=== PATIENT | male | born 1990 | race Caucasian/White ===

== ENCOUNTER 2018-04-13 14:05 | Emergency (ER) | payer SELFPAY ==
[2018-04-13] MEDS ORDERED: ONDANSETRON HCL 4 MG/2 ML SOL IV ONE ×2 (14:08→15:13)
[2018-04-13] MEDS ORDERED: SODIUM CHLORIDE 0.9% 1000ML 1,000 ML IV ONE (14:08)
[2018-04-13] MEDS ORDERED: ONDANSETRON HCL 4 MG/2 ML SOL ONE ×2 (14:24→15:14)
[2018-04-13 14:26] LABS: BASOPHILS % (AUTO) 1 % (0-3); EOSINOPHILS % (AUTO) 0 % (0-9); HEMATOCRIT 44 % (39-53); HEMOGLOBIN 15.7 gm/dl (13.5-17.7); LYMPHOCYTES % (AUTO) 6.99 % (10-50); MEAN CORPUSCULAR HEMOGLOBIN 30.4 pg (27.0-32.0); MEAN CORPUSCULAR HGB CONC 35.5 gm/dl (32.0-36.0); MEAN CORPUSCULAR VOLUME 86 fL (80-100); MONOCYTES % (AUTO) 5.1 % (0-12); NEUTROPHILS % (AUTO) 86.5 % (37-80)
[2018-04-13 14:41] VITALS: RESP 18
[2018-04-13 14:48] LABS: ALBUMIN 4.4 gm/dl (3.4-5.0); CALCIUM 9.3 mg/dl (8.5-10.1); CARBON DIOXIDE 18.5 mEq/L (21-32); CREATININE 1.27 mg/dl (0.80-1.30); TOTAL PROTEIN 8.1 gm/dl (6.4-8.2)
[2018-04-13 14:50] LABS: ALCOHOL 0.019 gm/dl (0.000-0.08)
[2018-04-13] MEDS ORDERED: SODIUM CHLORIDE 0.9% FLUSH 10 ML SOL IV PRN (14:55)
[2018-04-13] MEDS: SODIUM CHLORIDE 0.9% 1000ML 1,000 ML IV SCH ×2 (15:35→16:36)
[2018-04-13] MEDS ORDERED: THIAMINE 100 MG/ML 100 MG/ML SOL IV ONE (16:39)
[2018-04-13] MEDS ORDERED: FOLIC ACID 1 MG TAB PO ONE (16:40)
[2018-04-13] MEDS ORDERED: THIAMINE 100 MG/ML 100 MG/ML SOL ONE (16:42)
[2018-04-13] MEDS ORDERED: FOLIC ACID 1 MG TAB ONE (16:42)
[2018-04-13 16:50] LABS: APPEARANCE,URINE Clear; BILIRUBIN,URINE NEGATIVE (NEGATIVE); COLOR,URINE Yellow; GLUCOSE, URINE (UA) NEGATIVE (NEGATIVE); KETONES,URINE 2+ (NEGATIVE); LEUKOCYTE ESTERASE ,URINE NEGATIVE (NEGATIVE); NITRATE,URINE NEGATIVE (NEGATIVE); OCCULT BLOOD,URINE 2+ (NEG-TRACE); PH,URINE 5.5; UROBILINOGEN,URINE 0.2 (0.2-1.0 EU)
[2018-04-13 17:15] LABS: EPITHELIAL CELLS NEGATIVE (SQUAMOUS); RBC,URINE 0-1 (0-3AV/HPF); WBC,URINE 0-1 (0-5AV/HPF)
[2018-04-13 17:16] LABS: BACTERIA NEGATIVE (< 1+); CRYSTALS NEGATIVE (0-3 AVE/HPF)
[2018-04-13 18:27] VITALS: BP 134/75; PULSE 103; TEMP 101; O2SAT 98
== END 2018-04-13 18:25 | disposition home or self-care (01) | DRG 641 ==
LOC: ED 14:05
DX: E86.0 Dehydration (principal); R11.2 Nausea with vomiting, unspecified; Z72.0 Tobacco use
CPT/HCPCS: 80053; 80307; 81001; 82150; 85025; 96365; 96366; 96374; 96375; 99282; 99285; J2405; A9270-GY; J3411

== ENCOUNTER 2018-08-26 08:57 | Emergency (ER) | payer SELFPAY ==
[2018-08-26] MEDS ORDERED: ONDANSETRON HCL 4 MG/2 ML SOL ONE (09:12)
[2018-08-26] MEDS ORDERED: THIAMINE 100 MG/ML 100 MG/ML SOL IV ONE (09:14)
[2018-08-26] MEDS ORDERED: ONDANSETRON HCL 4 MG/2 ML SOL IV ONE (09:15)
[2018-08-26] MEDS ORDERED: SODIUM CHLORIDE 0.9% 1000ML 1,000 ML IV ONE (09:16)
[2018-08-26 09:18] LABS: BASOPHILS % (AUTO) 0 % (0-3); EOSINOPHILS % (AUTO) 0 % (0-9); HEMATOCRIT 49 % (39-53); HEMOGLOBIN 16.1 gm/dl (13.5-17.7); LYMPHOCYTES % (AUTO) 7.7 % (10-50); MEAN CORPUSCULAR HEMOGLOBIN 28.8 pg (27.0-32.0); MEAN CORPUSCULAR HGB CONC 32.8 gm/dl (32.0-36.0); MEAN CORPUSCULAR VOLUME 88 fL (80-100); MONOCYTES % (AUTO) 5.3 % (0-12); NEUTROPHILS % (AUTO) 86.7 % (37-80)
[2018-08-26] MEDS ORDERED: SODIUM CHLORIDE 0.9% FLUSH 10 ML SOL IV PRN (09:30)
[2018-08-26 09:31] LABS: ALBUMIN 4.7 gm/dl (3.4-5.0); ALCOHOL 0.045 gm/dl (0.000-0.08); BILIRUBIN,TOTAL 0.8 mg/dl (0.2-1.0); CALCIUM 9.2 mg/dl (8.5-10.1); CARBON DIOXIDE 16.4 mEq/L (21-32); CREATININE 1.22 mg/dl (0.80-1.30); MAGNESIUM 1.7 mg/dl (1.8-2.4); POTASSIUM 3.9 mMol/L (3.5-5.1); TOTAL PROTEIN 8.4 gm/dl (6.4-8.2)
[2018-08-26 09:39] VITALS: RESP 18
[2018-08-26] MEDS ORDERED: HYDROMORPHONE HCL 2 MG/ML SOL IV ONE (09:51)
[2018-08-26] MEDS ORDERED: PANTOPRAZOLE SODIUM 40 MG/10 ML PDS IV ONE (09:52)
[2018-08-26] MEDS ORDERED: HYDROMORPHONE 1 MG/ML SYRINGE ONE (09:54)
[2018-08-26] MEDS ORDERED: PANTOPRAZOLE SODIUM 40 MG/10 ML PDS ONE (09:54)
[2018-08-26 10:26] VITALS: TEMP 99
[2018-08-26 11:04] LABS: AMPHETAMINES NEGATIVE (NEGATIVE); BARBITUATES NEGATIVE (NEGATIVE); BENZODIAZEPINES NEGATIVE (NEGATIVE); CANNABINOL(THC) POSITIVE (NEGATIVE); COCAINE(COC) NEGATIVE (NEGATIVE); METHADONE NEGATIVE (NEGATIVE); METHAMPHETAMINES NEGATIVE (NEGATIVE); OPIATES(OPI) NEGATIVE (NEGATIVE); OXYCODONE(OXY) NEGATIVE (NEGATIVE); PROPOXYPHENE(PPX) NEGATIVE (NEGATIVE); TRICYCLIC ANTIDEPRESSANTS NEGATIVE (NEGATIVE)
[2018-08-26 11:28] VITALS: BP 136/72; PULSE 100; O2SAT 99
== END 2018-08-26 11:28 | disposition home or self-care (01) | DRG 392 ==
LOC: ED 08:57
DX: K29.20 Alcoholic gastritis without bleeding (principal)
CPT/HCPCS: 74177; 80053; 80305; 80307; 83735; 85025; 96365; 96366; 96374; 96375; 99283; 99285; J2405; Q9967; J1170; J3411

== ENCOUNTER 2018-11-02 09:47 | Inpatient (IN) | payer MEDICAID ==
[2018-11-02] MEDS ORDERED: ONDANSETRON HCL 4 MG/2 ML SOL IV ONE (10:01)
[2018-11-02] MEDS ORDERED: SODIUM CHLORIDE 0.9% 1000ML 1,000 ML IV ONE ×2 (10:01→15:06)
[2018-11-02] MEDS ORDERED: ONDANSETRON HCL 4 MG/2 ML SOL ONE (10:03)
[2018-11-02 10:17] LABS: HEMATOCRIT 47 % (39-53); HEMOGLOBIN 15.6 gm/dl (13.5-17.7); MEAN CORPUSCULAR HEMOGLOBIN 29.3 pg (27.0-32.0); MEAN CORPUSCULAR HGB CONC 33.2 gm/dl (32.0-36.0); MEAN CORPUSCULAR VOLUME 88 fL (80-100)
[2018-11-02] MEDS ORDERED: PANTOPRAZOLE SODIUM 40 MG/10 ML PDS IV ONE (10:29)
[2018-11-02] MEDS ORDERED: FENTANYL 100MCG/2ML SOL IV ONE ×2 (10:29→12:30)
[2018-11-02 10:30] LABS: ALBUMIN 4.4 gm/dl (3.4-5.0); CALCIUM 9.3 mg/dl (8.5-10.1); CARBON DIOXIDE 19.8 mEq/L (21-32); CREATININE 1.22 mg/dl (0.80-1.30); POTASSIUM 3.9 mMol/L (3.5-5.1)
[2018-11-02 10:36] LABS: BAND NEUTROPHILS % (MANUAL) 8 %; BASOPHILS % (MANUAL) 0 % (0-3); BURR CELLS OCCASIONAL; EOSINOPHILS % (MANUAL) 0 % (0-9); LYMPHOCYTES % (MANUAL) 4 % (10-50); MONOCYTES % (MANUAL) 14 % (0-12); NEUTROPHILS % (MANUAL) 74 % (37-80); POIKILOCYTOSIS SLIGHT AMT
[2018-11-02] MEDS ORDERED: FENTANYL 100MCG/2ML SOL ONE ×2 (10:40→12:37)
[2018-11-02] MEDS ORDERED: PANTOPRAZOLE SODIUM 40 MG/10 ML PDS ONE (10:41)
[2018-11-02] MEDS ORDERED: LIDOCAINE HCL 2% (VISCOUS) 20 ML SOL MT ONE (11:47)
[2018-11-02] MEDS ORDERED: ALUMINUM/MAGNESIUM 30 ML SUS PO ONE (11:47)
[2018-11-02] MEDS ORDERED: LIDOCAINE HCL 2% (VISCOUS) 20 ML SOL ONE (11:49)
[2018-11-02] MEDS ORDERED: ALUMINUM/MAGNESIUM 30 ML SUS ONE (11:49)
[2018-11-02] MEDS ORDERED: METRONIDAZOLE 500 MG (PREMIX) 500 MG/100 ML SOL IV ONE ×4 (12:30→15:30)
[2018-11-02] MEDS ORDERED: CIPROFLOXACIN HCL 500 MG TAB PO ONE (12:40)
[2018-11-02] MEDS ORDERED: CIPROFLOXACIN HCL 500 MG TAB PO SCH (12:45)
[2018-11-02] MEDS ORDERED: THIAMINE 100 MG/ML 100 MG/ML SOL IV ONE (13:24)
[2018-11-02] MEDS ORDERED: HYDROMORPHONE HCL 2 MG/ML SOL IV ONE (13:24)
[2018-11-02] MEDS ORDERED: HYDROMORPHONE 1 MG/ML SYRINGE IV ONE (13:26)
[2018-11-02] MEDS ORDERED: HYDROMORPHONE 1 MG/ML SYRINGE ONE (13:27)
[2018-11-02] MEDS ORDERED: THIAMINE 100 MG/ML 100 MG/ML SOL ONE (13:27)
[2018-11-02] MEDS ORDERED: PROCHLORPERAZINE EDISYLATE 5 MG/ML SOL IV ONE (14:07)
[2018-11-02] MEDS ORDERED: PROCHLORPERAZINE EDISYLATE 5 MG/ML SOL ONE (14:12)
[2018-11-02] MEDS ORDERED: HYDROMORPHONE 1 MG/ML SYRINGE IV PRN (15:01)
[2018-11-02] MEDS ORDERED: PROCHLORPERAZINE EDISYLATE 5 MG/ML SOL IV PRN (15:03)
[2018-11-02] MEDS ORDERED: NICOTINE 7 MG PATCH TD SCH (15:45)
[2018-11-02] MEDS: SODIUM CHLORIDE 0.9% FLUSH 10 ML SOL IV SCH (19:20)
[2018-11-02] MEDS: METRONIDAZOLE 500 MG (PREMIX) 500 MG/100 ML SOL IV SCH (20:23)
[2018-11-02] MEDS: CIPROFLOXACIN HCL 500 MG TAB PO SCH (20:23)
[2018-11-03 00:30] VITALS: RESP 16
[2018-11-03] MEDS: SODIUM CHLORIDE 0.9% FLUSH 10 ML SOL IV SCH (04:45)
[2018-11-03] MEDS: METRONIDAZOLE 500 MG (PREMIX) 500 MG/100 ML SOL IV SCH (04:49)
[2018-11-03 07:09] LABS: BASOPHILS % (AUTO) 1 % (0-3); EOSINOPHILS % (AUTO) 0 % (0-9); HEMATOCRIT 43 % (39-53); HEMOGLOBIN 14.1 gm/dl (13.5-17.7); LYMPHOCYTES % (AUTO) 17.1 % (10-50); MEAN CORPUSCULAR HEMOGLOBIN 29.2 pg (27.0-32.0); MEAN CORPUSCULAR HGB CONC 33.1 gm/dl (32.0-36.0); MEAN CORPUSCULAR VOLUME 88 fL (80-100); MONOCYTES % (AUTO) 12.4 % (0-12); NEUTROPHILS % (AUTO) 69.5 % (37-80)
[2018-11-03 07:12] LABS: CALCIUM 8.3 mg/dl (8.5-10.1); CARBON DIOXIDE 25.6 mEq/L (21-32); CREATININE 0.96 mg/dl (0.80-1.30); POTASSIUM 3.7 mMol/L (3.5-5.1)
[2018-11-03] MEDS ORDERED: INFLUENZA VIRUS VACCINE 0.5 ML SUS IM ONE (08:44)
[2018-11-03] MEDS: CIPROFLOXACIN HCL 500 MG TAB PO SCH (09:57)
[2018-11-03 10:52] VITALS: BP 128/83; PULSE 67; TEMP 98; O2SAT 99
== END 2018-11-03 10:00 | disposition home or self-care (01) | DRG 392 ==
LOC: ED 09:47 → UNDOADMIN 14:19 → ACUTE CARE 14:19
PROVIDERS: ADMIT Family Medicine; ATTEND Family Medicine
DX: K52.9 Noninfective gastroenteritis and colitis, unspecified (principal); R11.2 Nausea with vomiting, unspecified; K76.0 Fatty (change of) liver, not elsewhere classified
CPT/HCPCS: 36415; 74177; 80048; 80053; 82150; 85007; 85025; 85027; 90686; 96365; 96366; 96374; 96375; 99222; 99285; J0780; J2405; J3010; Q9967; A9270-GY; G0008; J1170; J3411; J3490

== ENCOUNTER 2019-05-11 20:07 | Emergency (ER) | payer MEDICAID, OTHER ==
[2019-05-11] MEDS ORDERED: ONDANSETRON HCL 4 MG/2 ML SOL IV ONE (20:29)
[2019-05-11] MEDS: SODIUM CHLORIDE 0.9% 1000ML 1,000 ML IV SCH ×2 (20:30→21:30)
[2019-05-11 20:32] VITALS: TEMP 97
[2019-05-11] MEDS ORDERED: ONDANSETRON HCL 4 MG/2 ML SOL ONE (20:33)
[2019-05-11] MEDS ORDERED: PANTOPRAZOLE SODIUM 40 MG/10 ML PDS IV ONE (20:33)
[2019-05-11] MEDS ORDERED: PANTOPRAZOLE SODIUM 40 MG/10 ML PDS ONE (20:40)
[2019-05-11 20:45] LABS: HEMATOCRIT 44 % (39-53); HEMOGLOBIN 15.2 gm/dl (13.5-17.7); MEAN CORPUSCULAR HEMOGLOBIN 30.6 pg (27.0-32.0); MEAN CORPUSCULAR HGB CONC 34.7 gm/dl (32.0-36.0); MEAN CORPUSCULAR VOLUME 88 fL (80-100)
[2019-05-11 21:00] LABS: ALBUMIN 4.4 gm/dl (3.4-5.0); BILIRUBIN,DIRECT 0.2 mg/dl (0.0-0.2); BILIRUBIN,TOTAL 0.7 mg/dl (0.2-1.0); CALCIUM 9.3 mg/dl (8.5-10.1); CARBON DIOXIDE 19.5 mEq/L (21-32); CREATININE 1.23 mg/dl (0.80-1.30); POTASSIUM 3.2 mMol/L (3.5-5.1); TOTAL PROTEIN 7.5 gm/dl (6.4-8.2)
[2019-05-11 21:01] LABS: ALCOHOL 0.009 gm/dl (0.000-0.08)
[2019-05-11 21:04] LABS: AMPHETAMINES NEGATIVE (NEGATIVE); BARBITUATES NEGATIVE (NEGATIVE); BENZODIAZEPINES NEGATIVE (NEGATIVE); CANNABINOL(THC) POSITIVE (NEGATIVE); COCAINE(COC) NEGATIVE (NEGATIVE); METHAMPHETAMINES NEGATIVE (NEGATIVE); OPIATES(OPI) NEGATIVE (NEGATIVE); PROPOXYPHENE(PPX) NEGATIVE (NEGATIVE)
[2019-05-11 21:05] LABS: OXYCODONE(OXY) NEGATIVE (NEGATIVE)
[2019-05-11 21:10] LABS: BAND NEUTROPHILS % (MANUAL) 3 %; BASOPHILS % (MANUAL) 0 % (0-3); EOSINOPHILS % (MANUAL) 0 % (0-9); LYMPHOCYTES % (MANUAL) 7 % (10-50); MONOCYTES % (MANUAL) 7 % (0-12); NEUTROPHILS % (MANUAL) 83 % (37-80); NORMAL RBCS PRESENT
[2019-05-11] MEDS ORDERED: LORAZEPAM 2 MG/ML 10ML MDV 2 MG/ML VIAL IV PRN (21:19)
[2019-05-11] MEDS ORDERED: LORAZEPAM 2 MG/ML SOL ONE (21:37)
[2019-05-11 22:03] VITALS: PULSE 88; RESP 20
[2019-05-11] MEDS ORDERED: PROCHLORPERAZINE EDISYLATE 5 MG/ML SOL IV ONE (22:18)
[2019-05-11] MEDS ORDERED: PROCHLORPERAZINE EDISYLATE 5 MG/ML SOL ONE (22:21)
[2019-05-11] MEDS ORDERED: POTASSIUM CHLORIDE 10 MEQ TER PO ONE (23:21)
[2019-05-11] MEDS ORDERED: POTASSIUM CHLORIDE 10 MEQ TER ONE (23:24)
[2019-05-11] MEDS ORDERED: ONDANSETRON 4 MG ODT ONE (23:40)
[2019-05-11] MEDS ORDERED: ONDANSETRON 4 MG ODT BU PRN (23:54)
[2019-05-12 00:59] VITALS: BP 151/86; O2SAT 100
== END 2019-05-11 23:40 | disposition home or self-care (01) | DRG 641 ==
LOC: ED 20:07
DX: E86.0 Dehydration (principal); K29.20 Alcoholic gastritis without bleeding; F10.10 Alcohol abuse, uncomplicated; E87.6 Hypokalemia; F12.90 Cannabis use, unspecified, uncomplicated
CPT/HCPCS: 36415; 80048; 80076; 80305; 80307; 82140; 82150; 83690; 85007; 85027; 96365; 96366; 96374; 96375; 99283; 99285; J0780; J2060; J2405; A9270-GY

== ENCOUNTER 2019-05-31 14:52 | Emergency (ER) | payer OTHER ==
[2019-05-31] MEDS: SODIUM CHLORIDE 0.9% FLUSH 10 ML SOL IV PRN ×2 (15:15→16:01)
[2019-05-31] MEDS ORDERED: ONDANSETRON HCL 4 MG/2 ML SOL IV ONE (15:21)
[2019-05-31] MEDS ORDERED: ONDANSETRON HCL 4 MG/2 ML SOL ONE (15:22)
[2019-05-31] MEDS: SODIUM CHLORIDE 0.9% 1000ML 1,000 ML IV SCH ×2 (15:28→16:35)
[2019-05-31] MEDS ORDERED: PANTOPRAZOLE SODIUM 40 MG/10 ML PDS IV ONE (15:52)
[2019-05-31] MEDS ORDERED: PANTOPRAZOLE SODIUM 40 MG/10 ML PDS ONE (15:57)
[2019-05-31 16:01] LABS: BASOPHILS % (AUTO) 0 % (0-3); EOSINOPHILS % (AUTO) 0 % (0-9); HEMATOCRIT 46 % (39-53); HEMOGLOBIN 15.2 gm/dl (13.5-17.7); LYMPHOCYTES % (AUTO) 6.6 % (10-50); MEAN CORPUSCULAR HEMOGLOBIN 30.7 pg (27.0-32.0); MEAN CORPUSCULAR HGB CONC 33.2 gm/dl (32.0-36.0); MEAN CORPUSCULAR VOLUME 93 fL (80-100); MONOCYTES % (AUTO) 3.4 % (0-12); NEUTROPHILS % (AUTO) 89.6 % (37-80)
[2019-05-31 16:05] VITALS: TEMP 99.1
[2019-05-31 16:09] LABS: ALBUMIN 4.4 gm/dl (3.4-5.0); BILIRUBIN,DIRECT 0.1 mg/dl (0.0-0.2); BILIRUBIN,TOTAL 0.8 mg/dl (0.2-1.0); CALCIUM 8.9 mg/dl (8.5-10.1); CARBON DIOXIDE 18.8 mEq/L (21-32); CREATININE 1.12 mg/dl (0.80-1.30); TOTAL PROTEIN 7.9 gm/dl (6.4-8.2)
[2019-05-31] MEDS ORDERED: PROCHLORPERAZINE EDISYLATE 5 MG/ML SOL IV ONE (16:45)
[2019-05-31] MEDS ORDERED: PROCHLORPERAZINE EDISYLATE 5 MG/ML SOL ONE (16:46)
[2019-05-31 16:53] VITALS: O2SAT 97
[2019-05-31 17:06] LABS: AMPHETAMINES NEGATIVE (NEGATIVE); BARBITUATES NEGATIVE (NEGATIVE); BENZODIAZEPINES NEGATIVE (NEGATIVE); CANNABINOL(THC) POSITIVE (NEGATIVE); COCAINE(COC) NEGATIVE (NEGATIVE); METHAMPHETAMINES NEGATIVE (NEGATIVE); OPIATES(OPI) NEGATIVE (NEGATIVE); OXYCODONE(OXY) NEGATIVE (NEGATIVE); PROPOXYPHENE(PPX) NEGATIVE (NEGATIVE)
[2019-05-31] MEDS ORDERED: LORAZEPAM 0.5 MG TAB PO ONE (17:37)
[2019-05-31] MEDS ORDERED: LORAZEPAM 0.5 MG TAB ONE (17:50)
[2019-05-31 18:11] VITALS: BP 118/71; PULSE 101; RESP 16
== END 2019-05-31 18:00 | disposition home or self-care (01) | DRG 392 ==
LOC: ED 14:52
DX: R11.2 Nausea with vomiting, unspecified (principal); E86.0 Dehydration; F10.10 Alcohol abuse, uncomplicated; K29.20 Alcoholic gastritis without bleeding; F12.90 Cannabis use, unspecified, uncomplicated
CPT/HCPCS: 36415; 80048; 80076; 80305; 80307; 83690; 85025; 96365; 96366; 96374; 96375; 99283; 99285; J0780; J2405; A9270-GY